=== PATIENT | female | born 1970 | race Caucasian/White ===

== ENCOUNTER 2016-09-20 08:09 | Day surgery (SDC) | payer OTHER ==
[~2016-09-20] VITALS: Ht 157.5 cm; Wt 95.0 kg
[~2016-09-20 08:09] MED LIST: 0.9% Sodium Chloride 1,000 ML IV PRN; BUSP30TA2 PO; DOCU240C41 PO; Sodium Chloride LOK Flush 10 mL Syringe IV PRN; fentaNYL-PF 50 mCg/mL 2 mL Inj IVPUSH PRN
[2016-09-20] MEDS ORDERED: HYDR-4003 PO (08:46)
[2016-09-20 08:53] VITALS: BP 117/76; PULSE 58; RESP 14; O2SAT 100
[2016-09-20 10:05] VITALS: BP 123/81; PULSE 68; RESP 16; O2SAT 100
--- NOTE | 2016-09-20 10:05 | PCM.ENDCOL ---
Colonoscopy Date of Service: Sep 20, 2016 Physician Tee Alexander MD Indication for Procedure Worsening constipation Post Procedure Dx & Findings: Hemorrhoids Procedure Colonoscopy Prep fair Cecum 7 minutes Withdrawal 40 minutes PROCEDURE IN DETAIL: After unremarkable rectal examination Olympus video colonoscope was inserted into patient's anal canal was advanced to cecum. Landmarks were identified including the ileocecal valve and appendiceal orifice. Scope further events the terminal ileum up to about 8 cm. Terminal ileum showed normal healthy villous structures. No ulcers masses noted. The mucosa of the cecum, ascending, transverse, descending, sigmoid, rectal mucosa lined with whitish, pink, smooth, glistening, normal-appearing mucosa, normal fine branching, underlying vascularity, normal haustra. The patient tolerated procedure and was transported to observation area. In the rectum retroflexion was done which showed hemorrhoids and anal canal was inspected carefully and the way out and hemorrhoids noted. Impression Hemorrhoids Normal TI Normal colon Suspected underlying hypersensitivity Recommendation Repeat colonoscopy when she is 52 years old. Presedation Assessment Risks and Benefits Informed consent was obtained from the patient after all risks and benefits including but not limited to drug reaction, infection, pain, bleeding, perforation, as well as alternatives were discussed. Patient monitoring Continuous pulse oximetry, cardiac monitoring, blood pressure monitoring, IV access, and oxygen at 2L per nasal cannula. Periprocedural Fentanyl: Fentanyl 100mcg Incrementally Midazolam: Midazolam 7mg Incrementally Diphenhydramine: Diphenhydramine 25 mg IV Complications There were no periprocedural complications identified. Post Procedure Plan Post Procedure Recommendations 1. Restrict activities today. 2. Resume normal activities in the morning. 3. Resume medications. 4. Patient informed of normal post procedure side effects as bloating, drowsiness, blood streaking in the stool. 5. average risk CRCS. If colon polyps come back as: -Hyperplastic- can repeat colonoscopy in 10 years -Tubular adenoma- repeat colonoscopy in 5 years -Tubulovillous/villous adenoma- repeat colonoscopy in 3 years -If any dysplasia- return to clinic as soon as possible 6. Please don't hesitate to call me with any questions. Tee Alexander MD Sep 20, 2016 10:05
[2016-09-20 10:15] VITALS: BP 127/79; PULSE 77; RESP 16; O2SAT 99
[2016-09-20 10:25] VITALS: BP 122/77; PULSE 72; RESP 16; O2SAT 97
== END 2016-09-20 23:59 | disposition home or self-care (01) ==
LOC: END 08:09
PROVIDERS: ATTEND Internal Medicine
DX: K59.00 Constipation, unspecified (principal); K64.9 Unspecified hemorrhoids; K58.9 Irritable bowel syndrome, unspecified; E11.9 Type 2 diabetes mellitus without complications
CPT/HCPCS: 45378; 99151; 99153; G0500; J2250; J7030